=== PATIENT | male | born 1975 | race Caucasian/White ===

== ENCOUNTER 2019-10-31 14:44 | Emergency (ER) | payer OTHER, SELFPAY ==
[2019-10-31 14:52] VITALS: BP 115/73; PULSE 64; RESP 16; TEMP 37.1; O2SAT 100
--- NOTE | 2019-10-31 15:15 | ED.GENADULT ---
HPI - General Adult General Chief complaint: Skin/Abscess/Foreign Body Stated complaint: poison trace Time Seen by Provider: 10/31/19 15:15 Source: patient and RN notes reviewed Mode of arrival: ambulatory Limitations: no limitations History of Present Illness HPI narrative: 44-year-old male presents with complaints of red, itching, and burning rash to genital area and right buttock for the past 4-5 days. Clyde says he was burning brush in the yard and urinated outside without washing hands and touched genital areas. OTC medicine for 2 days without relief. Denies new detergent, personal hygiene products, or laundry detergent. No new foods or medications. No swelling, bleeding, or drainage. Denies fever or chills, headaches, weakness, fatigue, malagia, facial swelling, or tongue swelling. Denies chest pain or dyspnea. The patient reports he have not been diagnosed with COVID-19. The patient reports he is not waiting for the results of a COVID-19 lab test. The patient reports he do not have fever, chills, weakness, fatigue, myalgia, or facial swelling. The patient reports he do not have a new or worsening cough or shortness of breath. Denies chest pain. The patient reports he do not have any rhinorrhea, congestion, sore throat, nausea, vomiting, abdominal pain, and diarrhea. Tolerating po intake well. Denies recent traveling. Denies concerns for COVID-19 or exposures been home since [id number] order except for essential household needs, working, and return home. At this time, patient is not suspected of having COVID-19. Some parts of this dictation were generated by voice recognition software and may contain typographical and/or grammatical inaccuracies. Related Data Home Medications Medication Instructions Recorded Confirmed atorvastatin 20 mg PO DAILY 10/31/19 10/31/19 Allergies Allergy/AdvReac Type Severity Reaction Status Date / Time No Known Allergies Allergy Verified 10/31/19 15:03 Review of Systems Review of Systems: Narrative: CONSTITUTIONAL: Denies fever, chills, sweats. EYES: Denies visual changes, redness, discharge. ENT: Denies rhinorrhea, congestion, sore throat, otalgia. CARDIOVASCULAR: Denies chest pain, palpitations, edema. RESPIRATORY: Denies dyspnea, wheezing, cough. GASTROINTESTINAL: Denies abdominal pain, nausea, vomiting, diarrhea. GENITOURINARY: Denies dysuria, hematuria, abnormal discharge. SKIN: Complaints of red, itching, and burning rash to genital area and right buttock. Denies drainage. MUSCULOSKELETAL: Denies acute back pain, joint pain, or myalgia. NEUROLOGIC: Denies numbness or focal weakness. PSYCHIATRIC: Denies anxiety or depression. All other systems reviewed are negative, except as documented in HPI. PMFSH Past Medical History Medical History (Updated 11/01/19 @ 00:00 by Cj Grijalva) Hypercholesteremia Surgical History Surgical History (Updated 10/31/19 @ 15:23 by ZACARIAS Harper) History of dental surgery Hx of appendectomy Family History Family History (Updated 10/31/19 @ 15:24 by ZACARIAS Harper) Father Alive and well Mother Alive and well Grandparent Diabetes mellitus Social History Social History (Updated 11/05/19 @ 01:16 by ZACARIAS Harper) Smoking status: Former smoker Tobacco type: cigarettes Second hand tobacco smoke exposure: No Smoking end date: 12/03/15 Alcohol intake: current Substance use: never Living arrangements: with family Occupation/Education: occupation Gender identity (if verbalized by the patient): Male Comments At time of signature, agree with nurse past medical, surgical, social, and family history. There is no relevant family history pertinent to the presenting complaint. Exam Narrative: Exam Narrative: GENERAL: This is a well-nourished, well-developed patient, in no apparent distress. Talks in full sentences and ambulates with steady gait without dyspne
[2019-10-31] MEDS: methylPREDNISolone SOD SUCC 125 MG VIAL IM (15:25)
== END 2019-10-31 15:43 | disposition home or self-care (01) ==
PROVIDERS: Emergency Provider Nurse Practitioner Family; PCP Internal Medicine
DX: L23.7 Allergic contact dermatitis due to plants, except food (principal); E78.00 Pure hypercholesterolemia, unspecified; Z87.891 Personal history of nicotine dependence
CPT/HCPCS: 96372; 99213; G0463; J2930